=== PATIENT | female | born 1960 | race Caucasian/White ===

== ENCOUNTER 2017-02-22 15:03 | Emergency (ER) | payer MEDICAID ==
[~2017-02-22] VITALS: Ht 154.9 cm; Wt 74.8 kg
[2017-02-22 15:05] VITALS: BP_SYST 149
--- NOTE | 2017-02-22 15:05 | NUR ---
Patient triaged and placed in waiting room. VSS and patient appears in no acute distress at this time. Accompanied by SELF, awaiting available bed, and MD notified of need for MSE.
[2017-02-22] MEDS ORDERED: MORPHINE SULFATE 10 MG/ML VIAL IVP ONE (16:30)
[2017-02-22] MEDS ORDERED: DIPHENHYDRAMINE INJ 50 MG/ML VIAL IVP ONE (16:30)
[2017-02-22] MEDS ORDERED: KETOROLAC TROMETHAMINE 30 MG VIAL IVP ONE (16:30)
[2017-02-22] MEDS ORDERED: DIAZEPAM 10 MG/2 ML DISP.SYRIN IVP ONE (16:45)
--- NOTE | 2017-02-22 16:45 | NUR ---
Pt c/o lower back pain getting progressively worse past 2 weeks. Denies trauma. Unable to get pain undercontrol at home. Denies numbness and tingling to extremities.
--- NOTE | 2017-02-22 16:54 | NUR ---
Medicated with toradol IVP per MD orders. Waiting for pt ride to come to medicate with rest of the pain medication ordered. Pt verbalized understanding. Called father for ride.
[2017-02-22] MEDS ORDERED: MORPHINE 2 MG/ML INJ. SYRINGE IVP ONE (17:15)
--- NOTE | 2017-02-22 17:27 | NUR ---
Father at bedside. Medicated per MD orders. Placed on sp02 monitoring. BP WNL. Bed in lowest position. side rails up. Will continue to monitor.
[2017-02-22 18:00] VITALS: BP_SYST 132
--- NOTE | 2017-02-22 18:00 | NUR ---
Patient given written and verbal discharge instructions and verbalizes understanding. ER MD DR. GARCES discussed with patient the results and treatment provided. Patient in stable condition. ID arm band removed. IV catheter removed intact and dressing applied, no active bleeding. Rx of NORCO SOMA given. Patient educated on pain management and to follow up with PMD. Pain Scale 0/10 Opportunity for questions provided and answered.
== END 2017-02-22 18:00 | disposition home or self-care (01) ==
LOC: SED 15:03
DX: S39.012A Strain of muscle, fascia and tendon of lower back, initial encounter (principal); K21.9 Gastro-esophageal reflux disease without esophagitis; J45.909 Unspecified asthma, uncomplicated; Z96.649 Presence of unspecified artificial hip joint; Z88.1 Allergy status to other antibiotic agents; Z88.8 Allergy status to other drugs, medicaments and biological substances; X58.XXXA Exposure to other specified factors, initial encounter; Y93.89 Activity, other specified; Y92.89 Other specified places as the place of occurrence of the external cause; Y99.8 Other external cause status
CPT/HCPCS: 96374; 96375; 99284; J1200; J1885; J2270; J3360

== ENCOUNTER 2017-03-31 06:47 | Emergency (ER) | payer MEDICAID ==
[~2017-03-31] VITALS: Ht 154.9 cm; Wt 77.1 kg
[2017-03-31 06:55] VITALS: BP_SYST 140
--- NOTE | 2017-03-31 06:55 | NUR ---
Patient to ER bed 8 to gown for evaluation. Side rails up.
--- NOTE | 2017-03-31 07:05 | NUR ---
ER at bedside examining patient.
--- NOTE | 2017-03-31 07:10 | NUR ---
ASSMED CARE.PT AAOX4 C/O RUQ ABD RADIATING TO BACK INTERMITTENTLY SINCE SATURDAY WORSENING THIS AM WITH EPISODES OF VOMITING.PT H/O COPD,HTN. PT TALKING W/O RESP DISTRESS NOTED.
[2017-03-31] MEDS ORDERED: ONDANSETRON HCL 4 MG/2 ML VIAL IVP ONE (07:15)
[2017-03-31] MEDS ORDERED: NACL 0.9% 1,000 ML IV ONE (07:15)
[2017-03-31] MEDS ORDERED: KETOROLAC TROMETHAMINE 30 MG VIAL IVP ONE (07:15)
--- NOTE | 2017-03-31 07:15 | NUR ---
# 20 gauge angiocath placed to RAC. Use of asceptic technique. Opsite placed over site. Blood return noted. Blood for lab drawn from site. Flushed with 10 cc of normal saline. No evidence of infiltration noted. Patient tolerated well.
[2017-03-31 07:23] LABS: BASOPHILS # (AUTO) 0.1 K/uL (0.0-0.2); BASOPHILS % (AUTO) 0.9 % (0.0-2.0); EOSINOPHILS # (AUTO) 0.1 K/uL (0.0-0.4); EOSINOPHILS % (AUTO) 1.5 % (0.0-4.0); HEMATOCRIT 45.2 % (36-48); HEMOGLOBIN 15.1 g/dL (12.0-16.0); LYMPHOCYTES % (AUTO) 13.8 % (20.5-51.5); MEAN CORPUSCULAR HEMOGLOBIN 32 pg (27-31); MEAN CORPUSCULAR HGB CONC 33 % (32-36); MEAN CORPUSCULAR VOLUME 94 fL (79.0-98.0); MONOCYTES # (AUTO) 0.2 K/uL (0.0-1.0); MONOCYTES % (AUTO) 2.8 % (1.7-9.3); NEUTROPHILS # (AUTO) 5.6 K/uL (1.8-7.7); PLATELET COUNT (AUTO) 272 K/uL (130-430); RED BLOOD CELL COUNT(AUTO) 4.79 MIL/uL (4.2-6.2); RED CELL DISTRIBUTION WIDTH 13.2 % (9.0-15.0)
--- NOTE | 2017-03-31 07:30 | NUR ---
PT MEDICATED TOLERATED WELL. WILL CONTINUE TO MONITOR.
[2017-03-31 07:47] LABS: CALCIUM 9.1 mg/dL (8.4-11.0); CREATININE 0.94 mg/dL (0.55-1.30); POTASSIUM 3.9 mmol/L (3.5-5.1)
[2017-03-31 07:52] LABS: ALBUMIN 4.2 g/dL (3.4-4.8); TOTAL BILIRUBIN 0.8 mg/dL (0.0-1.0); TOTAL PROTEIN, SERUM 8.4 g/dL (6.4-8.3)
--- NOTE | 2017-03-31 08:13 | NUR ---
US AT BEDSIDE.
--- NOTE | 2017-03-31 08:42 | NUR ---
PT AMBULATED TO RESTROOM W/ASSIST FOR URINE SPECIMEN.
[2017-03-31] MEDS ORDERED: DICYCLOMINE HCL 10 MG CAPSULE PO ONE (09:00)
--- NOTE | 2017-03-31 09:00 | NUR ---
PT MEDICATED FOR ABD PAIN.MONITORING PT PRIOR TO D/C.
[2017-03-31 09:20] VITALS: BP_SYST 129
--- NOTE | 2017-03-31 09:20 | NUR ---
Patient given written and verbal discharge instructions and verbalizes understanding. ER MD discussed with patient the results and treatment provided. Patient in stable condition. ID arm band removed. IV catheter removed intact and dressing applied, no active bleeding. Rx of BENTYL given. Patient educated on pain management and to follow up with PMD. Pain Scale 2. Opportunity for questions provided and answered.
== END 2017-03-31 09:20 | disposition home or self-care (01) ==
LOC: SED 06:47
DX: K80.50 Calculus of bile duct without cholangitis or cholecystitis without obstruction (principal); R03.0 Elevated blood-pressure reading, without diagnosis of hypertension; K21.9 Gastro-esophageal reflux disease without esophagitis; J45.909 Unspecified asthma, uncomplicated; Z88.8 Allergy status to other drugs, medicaments and biological substances; Z88.1 Allergy status to other antibiotic agents
CPT/HCPCS: 36415; 76700; 80053; 83690; 85025; 96361; 96374; 96375; 99285; J1885; J2405; J7030

== ENCOUNTER 2017-07-16 13:10 | Emergency (ER) | payer MEDICAID ==
[~2017-07-16] VITALS: Ht 154.9 cm; Wt 70.3 kg
[2017-07-16 13:16] VITALS: BP_SYST 150
[2017-07-16] MEDS ORDERED: DIPHENHYDRAMINE INJ 50 MG/ML VIAL IVP ONE (13:45)
[2017-07-16] MEDS ORDERED: ONDANSETRON HCL 4 MG/2 ML VIAL IVP ONE (13:45)
[2017-07-16] MEDS ORDERED: HYDROmorphone 1 MG INJ. 1 MG/ML AMPUL IVP ONE ×2 (13:45→14:30)
[2017-07-16] MEDS ORDERED: KETOROLAC TROMETHAMINE 30 MG VIAL IVP ONE (13:45)
[2017-07-16 15:01] VITALS: BP_SYST 143
== END 2017-07-16 15:01 | disposition home or self-care (01) ==
LOC: SED 13:10
DX: M43.6 Torticollis (principal); J45.909 Unspecified asthma, uncomplicated; K21.9 Gastro-esophageal reflux disease without esophagitis; Z88.8 Allergy status to other drugs, medicaments and biological substances
CPT/HCPCS: 96374; 96375; 96376; 99284; J1170; J1200; J1885; J2405

== ENCOUNTER 2018-12-11 08:37 | Emergency (ER) | payer MEDICAID ==
[~2018-12-11] VITALS: Ht 154.9 cm; Wt 70.8 kg
[2018-12-11 08:43] VITALS: BP_SYST 151
--- NOTE | 2018-12-11 08:43 | NUR ---
Pt placed in bed 6
--- NOTE | 2018-12-11 08:45 | NUR ---
Pt presents to ER c/o low back pain 8/10 on pain scale. Pt still ambulatory, no signs of acute distress, pt denies any other complaints at this time.
--- NOTE | 2018-12-11 09:03 | NUR ---
ER Dr. Pearson at bedside examining patient.
[2018-12-11] MEDS ORDERED: METHOCARBAMOL 500 MG TABLET PO ONE (09:15)
--- NOTE | 2018-12-11 09:37 | NUR ---
Pt refusing Robaxin and Toradol ordered by ER Dr. Pearson, stating that "it flares up my IBS". Dr. Pearson informed.
--- NOTE | 2018-12-11 09:52 | NUR ---
Dr. Pearson speaking with pt.
[2018-12-11] MEDS: KETOROLAC TROMETHAMINE 60 MG/2 ML VIAL IM ONE (09:57)
[2018-12-11 10:50] VITALS: BP_SYST 151
--- NOTE | 2018-12-11 10:50 | NUR ---
Patient given written and verbal discharge instructions and verbalizes understanding. ER MD discussed with patient the results and treatment provided. Patient in stable condition. ID arm band removed. Rx of [place] given. Patient educated on pain management and to follow up with PMD. Pain Scale 5/10 but pt advised by Dr[address] Pearson to follow up with PMD for further pain control. Opportunity for questions provided and answered. Medication side effect fact sheet provided.
== END 2018-12-11 10:50 | disposition home or self-care (01) ==
LOC: SED 08:37
DX: S33.5XXA Sprain of ligaments of lumbar spine, initial encounter (principal); K21.9 Gastro-esophageal reflux disease without esophagitis; J45.909 Unspecified asthma, uncomplicated; Z88.8 Allergy status to other drugs, medicaments and biological substances; X50.0XXA Overexertion from strenuous movement or load, initial encounter; Y93.89 Activity, other specified; Y92.89 Other specified places as the place of occurrence of the external cause; Y99.8 Other external cause status
CPT/HCPCS: 96372; 99283; J1885

== ENCOUNTER 2019-01-05 16:14 | Emergency (ER) | payer MEDICAID ==
[2019-01-06 14:38] LABS: HEMOGLOBIN 14.7 g/dL (12.0-16.0); MEAN CORPUSCULAR HEMOGLOBIN 32 pg (27-31); MEAN CORPUSCULAR HGB CONC 34 % (32-36); MEAN CORPUSCULAR VOLUME 95 fL (79.0-98.0); PLATELET COUNT (AUTO) 294 K/uL (130-430); RED BLOOD CELL COUNT(AUTO) 4.61 MIL/uL (4.2-6.2); WHITE BLOOD COUNT (AUTO) 7.9 K/uL (4.8-10.8)
[2019-01-06 14:39] LABS: BASOPHILS # (AUTO) 0.1 K/uL (0.0-0.2); BASOPHILS % (AUTO) 0.9 % (0.0-2.0); EOSINOPHILS # (AUTO) 0.1 K/uL (0.0-0.4); EOSINOPHILS % (AUTO) 1.1 % (0.0-4.0); LYMPHOCYTES # (AUTO) 2.8 K/uL (1.0-5.5); MONOCYTES # (AUTO) 0.6 K/uL (0.0-1.0); MONOCYTES % (AUTO) 7.5 % (1.7-9.3); NEUTROPHILS # (AUTO) 4.4 K/uL (1.8-7.7); NEUTROPHILS % (AUTO) 55.5 % (40.0-70.0)
[2019-01-06 14:40] LABS: CALCIUM 9.6 mg/dL (8.4-11.0); POTASSIUM 3.8 mmol/L (3.5-5.1)
[2019-01-06 14:41] LABS: ALBUMIN 4.1 g/dL (3.4-4.8); CREATININE 1.51 mg/dL (0.55-1.30); TOTAL BILIRUBIN 0.5 mg/dL (0.0-1.0)
== END 2019-01-05 19:20 | disposition home or self-care (01) ==
LOC: SED 16:14
DX: I95.1 Orthostatic hypotension (principal); J44.9 Chronic obstructive pulmonary disease, unspecified
CPT/HCPCS: 36415; 80053; 84484; 85025; 93005; 96360; 99284; J7030; 71045

== ENCOUNTER 2022-07-18 09:27 | Emergency (ER) | payer MEDICAID ==
[~2022-07-18] VITALS: Ht 154.9 cm; Wt 69.9 kg
[2022-07-18 09:27] VITALS: BP_SYST 126
[~2022-07-18 09:27] MED LIST: ALBMDI INH; PRED20TA PO; ZIT250 PO
--- NOTE | 2022-07-18 09:27 | NUR ---
Patient triaged and placed in waiting room. VSS and patient appears in no acute distress at this time. Accompanied by SELF, awaiting available bed, and MD notified of need for MSE.
--- NOTE | 2022-07-18 10:01 | NUR ---
PT WALKING ALL AROUND WAITING ROOM AND OUTSIDE, NO ACUTE DISTRESS. PT IS CONVERSING WITH OTHER PTS IN WAITING ROOM.
--- NOTE | 2022-07-18 11:10 | NUR ---
PT NON-STOP TALKING, SPEAKING WITH OTHER PTS IN WAITING ROOM. O2 SATURATION CHECKED AND IS 100% ON ROOM AIR. NO ACUTE DISTRESS
--- NOTE | 2022-07-18 12:11 | NUR ---
PATRICIA Whitney at bedside examining patient.
[2022-07-18] MEDS ORDERED: ALBUTEROL SULFATE 0.083% 2.5 MG/3 ML VIAL.NEB INH ONE (12:15)
[2022-07-18] MEDS ORDERED: predniSONE 20 MG TABLET PO ONE (12:15)
--- NOTE | 2022-07-18 12:25 | NUR ---
Covid swab done and sent to lab.
--- NOTE | 2022-07-18 12:27 | NUR ---
RT at bedside.
[2022-07-18] MEDS ORDERED: PRED20TA PO ×3 (12:56→13:13)
[2022-07-18] MEDS ORDERED: AZIT-93 PO ×3 (12:56→13:13)
[2022-07-18] MEDS ORDERED: ALBU2.5V7 INH ×3 (12:56→13:14)
[2022-07-18 13:21] VITALS: BP_SYST 138
--- NOTE | 2022-07-18 13:22 | NUR ---
Patient given written and verbal discharge instructions and verbalizes understanding. ER MD discussed with patient the results and treatment provided. Patient in stable condition. ID arm band removed. Rx of Albuterol, Azithromycin, and Prednisone given. Patient educated on pain management and to follow up with PMD. Pain Scale 0/10. Opportunity for questions provided and answered. Medication side effect fact sheet provided.
== END 2022-07-18 13:22 | disposition home or self-care (01) ==
LOC: SED 09:27
DX: J45.901 Unspecified asthma with (acute) exacerbation (principal); R05.9 Cough, unspecified; Z88.1 Allergy status to other antibiotic agents; Z88.8 Allergy status to other drugs, medicaments and biological substances; K21.9 Gastro-esophageal reflux disease without esophagitis; Z79.899 Other long term (current) drug therapy; Z20.822 Contact with and (suspected) exposure to COVID-19
CPT/HCPCS: 36415; 71045; 94640; 99284; 87426; J7512; J7613

== ENCOUNTER 2022-07-20 12:29 | Emergency (ER) | payer MEDICAID ==
[~2022-07-20] VITALS: Ht 154.9 cm; Wt 70.3 kg
[~2022-07-20 12:29] MED LIST changes: +ALBU2.5V7 INH; +AZIT-93 PO
[2022-07-20 13:41] VITALS: BP_SYST 133
[2022-07-20] MEDS ORDERED: NACL 0.9% 1,000 ML IV ONE (15:45)
[2022-07-20] MEDS ORDERED: cefTRIAXone 1 GM IVPB PREMIX 50 ML IV ONE (15:45)
[2022-07-20] MEDS ORDERED: KETOROLAC TROMETHAMINE 30 MG VIAL IVP ONE (15:45)
[2022-07-20 16:01] LABS: BILIRUBIN,URINE NEGATIVE (NEGATIVE); BLOOD, URINE NEGATIVE (NEGATIVE); CLARITY/URINE CLEAR (CLEAR); COLOR,URINE YELLOW (YELLOW); GLUCOSE,URINE NEGATIVE (NEGATIVE); KETONES,URINE NEGATIVE (NEGATIVE); LEUKOCYTE ESTERASE ,URINE NEGATIVE (NEGATIVE); NITRITE, URINE NEGATIVE (NEGATIVE); PROTEIN URINE NEGATIVE (NEGATIVE); UROBILINOGEN,URINE 0.2 (0.2-1.0)
[2022-07-20 16:05] LABS: BASOPHILS % (AUTO) 0.2 % (0.0-2.0); EOSINOPHILS % (AUTO) 0.1 % (0.0-4.0); HEMATOCRIT 30.3 % (36-48); HEMOGLOBIN 10.2 g/dL (12.0-16.0); LYMPHOCYTES # (AUTO) 0.6 K/uL (1.0-5.5); MEAN CORPUSCULAR HEMOGLOBIN 32 pg (27-31); MONOCYTES # (AUTO) 0.2 K/uL (0.0-1.0); NEUTROPHILS # (AUTO) 7.1 K/uL (1.8-7.7); WHITE BLOOD COUNT (AUTO) 7.9 K/uL (4.8-10.8)
[2022-07-20 16:09] LABS: MEAN CORPUSCULAR HGB CONC 34 % (32-36); MEAN CORPUSCULAR VOLUME 95 fL (79.0-98.0); MONOCYTES % (AUTO) 2.3 % (1.7-9.3); NEUTROPHILS % (AUTO) 90.4 % (40.0-70.0); PLATELET COUNT (AUTO) 212 K/uL (130-430); RED BLOOD CELL COUNT(AUTO) 3.17 MIL/uL (4.2-6.2); RED CELL DISTRIBUTION WIDTH 13.7 % (9.0-15.0)
[2022-07-20 16:29] LABS: CALCIUM 8.3 mg/dL (8.4-11.0); CREATININE 0.73 mg/dL (0.55-1.30); POTASSIUM 3.8 mmol/L (3.5-5.1)
[2022-07-20 16:35] LABS: TOTAL BILIRUBIN 0.2 mg/dL (0.0-1.0)
[2022-07-20] MEDS ORDERED: NAPR-690 PO (17:53)
[2022-07-20 18:02] VITALS: BP_SYST 154
[2022-07-20 19:04] LABS: CKMB RELATIVE INDEX 0.8 (0.0-2.9); CREATINE KINASE MB 1.8 ng/mL (0-3.6)
== END 2022-07-20 18:03 | disposition home or self-care (01) ==
LOC: SED 12:29
DX: S33.5XXA Sprain of ligaments of lumbar spine, initial encounter (principal); J45.909 Unspecified asthma, uncomplicated; K21.9 Gastro-esophageal reflux disease without esophagitis; Z88.1 Allergy status to other antibiotic agents; Z88.8 Allergy status to other drugs, medicaments and biological substances; Z79.899 Other long term (current) drug therapy; W01.198A Fall on same level from slipping, tripping and stumbling with subsequent striking against other object, initial encounter; Y93.89 Activity, other specified; Y92.89 Other specified places as the place of occurrence of the external cause; Y99.8 Other external cause status
CPT/HCPCS: 99284; 74176; 96365; 96375; 80053; 82550; 82553; 85025; 87040; 36415; 76376; 81003; J0696; J1885

== ENCOUNTER 2022-09-27 07:57 | Emergency (ER) | payer MEDICAID ==
[~2022-09-27] VITALS: Ht 154.9 cm; Wt 70.8 kg
[~2022-09-27 07:57] MED LIST changes: +NAPR-690 PO
--- NOTE | 2022-09-27 08:00 | NUR ---
PT BROUGHT TO ROOM FROM TRIAGE. REPORT RECEIVED. CARE ASSUMED. PT ATTACHED TO TOOL GRINDING TECHNICIAN. PT ALERT AND ORIENTED X4. PT SL TACHYPNEIC, SPEAKING IN FULL SENTENCES, COUGH, LUNG SOUNDS WITH GOOD AIR MOVEMENT W EXP WHEEZES. SAO2 97% ON RA. MM PINK. NAD
[2022-09-27 08:05] VITALS: BP_SYST 123
--- NOTE | 2022-09-27 08:05 | NUR ---
Placed in room 06, report given to RAMYA OSCAR. PT VSS. SIDE RAILS UP.
--- NOTE | 2022-09-27 08:10 | NUR ---
ER Dr. LYNN at bedside examining patient.
[2022-09-27] MEDS ORDERED: MAGNESIUM SULFATE 50 ML IV ONE (08:15)
[2022-09-27] MEDS ORDERED: methylPREDNISolone SOD SUCC/PF 62.5 MG/ML VIAL IVP ONE (08:15)
[2022-09-27] MEDS ORDERED: ALBUTEROL SULFATE 0.083% 2.5 MG/3 ML VIAL.NEB INH ONE (08:15)
[2022-09-27] MEDS ORDERED: IPRATROPIUM BROM 0.5 MG/2.5 ML VIAL.NEB (ATROVENT) INH ONE (08:15)
--- NOTE | 2022-09-27 08:25 | NUR ---
RT AT BEDSIDE STARTING NEG TX
--- NOTE | 2022-09-27 08:30 | NUR ---
IV SALINE LOCK STARTED IN R AC WITH 20G ANGIO WITHOUT DIFF, BLOOD DRAWN AND HANDED TO LAB. SITE FLUSHES EASILY, GOOD BLOOD RETURN, PT TOLERATED WELL
[2022-09-27 08:35] LABS: BASOPHILS # (AUTO) 0.1 K/uL (0.0-0.2); EOSINOPHILS # (AUTO) 0.1 K/uL (0.0-0.4); EOSINOPHILS % (AUTO) 1.6 % (0.0-4.0); HEMATOCRIT 38.8 % (36-48); HEMOGLOBIN 13.3 g/dL (12.0-16.0); LYMPHOCYTES # (AUTO) 1.6 K/uL (1.0-5.5); LYMPHOCYTES % (AUTO) 27.8 % (20.5-51.5); MEAN CORPUSCULAR HEMOGLOBIN 32 pg (27-31); MEAN CORPUSCULAR HGB CONC 34 % (32-36); MEAN CORPUSCULAR VOLUME 93 fL (79.0-98.0); MONOCYTES # (AUTO) 0.3 K/uL (0.0-1.0); MONOCYTES % (AUTO) 5.1 % (1.7-9.3); NEUTROPHILS # (AUTO) 3.6 K/uL (1.8-7.7); NEUTROPHILS % (AUTO) 64.5 % (40.0-70.0); PLATELET COUNT (AUTO) 209 K/uL (130-430); RED BLOOD CELL COUNT(AUTO) 4.15 MIL/uL (4.2-6.2); RED CELL DISTRIBUTION WIDTH 13.5 % (9.0-15.0); WHITE BLOOD COUNT (AUTO) 5.6 K/uL (4.8-10.8)
--- NOTE | 2022-09-27 08:35 | NUR ---
EKG DONE BY TECH
--- NOTE | 2022-09-27 08:40 | NUR ---
NASAL SWAB DONE BY TECH, SPECIMEN TO LAB
[2022-09-27 08:47] LABS: ANION GAP 9 (5-15); CALCIUM 9.2 mg/dL (8.4-11.0); CHLORIDE 102 mmol/L (98-107); CREATININE 0.73 mg/dL (0.55-1.30); GLUCOSE 117 mg/dL (70-99); POTASSIUM 3.4 mmol/L (3.5-5.1); UREA NITROGEN, BLOOD 12 mg/dL (8-21)
[2022-09-27 08:49] LABS: GFR AFRICAN AMERICAN 104 mL/min (>90)
[2022-09-27 08:56] LABS: ALANINE AMINOTRANSFERASE 24 U/L (12-78); ALBUMIN 3.7 g/dL (3.4-4.8); ASPARTATE AMINOTRANSFERASE 20 U/L (10-37); TOTAL BILIRUBIN 0.7 mg/dL (0.0-1.0)
[2022-09-27] MEDS ORDERED: ALBU8.5H8 INH (09:50)
[2022-09-27] MEDS ORDERED: PRED20TA PO (09:50)
[2022-09-27 10:00] VITALS: BP_SYST 96
--- NOTE | 2022-09-27 10:00 | NUR ---
Patient given written and verbal discharge instructions and verbalizes understanding. ER MD discussed with patient the results and treatment provided. Patient in stable condition. ID arm band removed. IV catheter removed intact and dressing applied, no active bleeding. Rx of ALBUTEROL AND PREDNISONE given. Patient educated on pain management and to follow up with PMD. Opportunity for questions provided and answered. Medication side effect fact sheet provided.
== END 2022-09-27 10:00 | disposition home or self-care (01) ==
LOC: SED 07:57
DX: J45.901 Unspecified asthma with (acute) exacerbation (principal); R06.02 Shortness of breath; R05.9 Cough, unspecified; R09.81 Nasal congestion; K21.9 Gastro-esophageal reflux disease without esophagitis; I10 Essential (primary) hypertension; Z88.1 Allergy status to other antibiotic agents; Z88.2 Allergy status to sulfonamides; Z88.8 Allergy status to other drugs, medicaments and biological substances; Z79.899 Other long term (current) drug therapy; Z20.822 Contact with and (suspected) exposure to COVID-19
CPT/HCPCS: 80053; 85025; 84484; 36415; 93005; 71045; 94640; 99285; 96365; 96375; 87426; J3475; J2930; J7613